=== PATIENT | male | born 1965 | race Caucasian/White ===

== ENCOUNTER → 2020-08-29 | Outpatient (CLI) | payer OTHER | LOC: LAB 11:49 | PROVIDERS: ATTEND Surgery | DX: Z01.812 Encounter for preprocedural laboratory examination (principal); K43.9 Ventral hernia without obstruction or gangrene; Z20.822 Contact with and (suspected) exposure to COVID-19 | CPT/HCPCS: U0003; U0005 ==

== ENCOUNTER 2020-09-01 06:18 | Day surgery (SDC) | payer OTHER ==
[~2020-09-01] VITALS: Ht 185.4 cm; Wt 147.0 kg
[~2020-09-01 06:18] MED LIST: ceFAZolin SODIUM 3 GM in IV DEXTROSE 5% 100ML 100 ML IV PRN
[2020-09-01] MEDS ORDERED: ROCURONIUM 50 MG/5 ML VIAL. ONE ×2 (06:25→08:02)
[2020-09-01] MEDS ORDERED: PROPOFOL 10 MG/ML (20ML) VIAL. IV ONE ×2 (06:25→08:06)
[2020-09-01] MEDS ORDERED: LIDOCAINE 2% PF 5 ML VIAL. ONE (06:25)
[2020-09-01] MEDS ORDERED: MULT-735 PO (06:42)
[2020-09-01] MEDS ORDERED: MELO15TA23 PO (06:43)
[2020-09-01] MEDS ORDERED: IBUP-1027 PO (06:43)
[2020-09-01] MEDS ORDERED: ACETAMINOPHEN 500 MG TABLET PO ONE (07:00)
[2020-09-01] MEDS ORDERED: PROCHLORPERAZINE 10 MG/2 ML VIAL. IVP PRN (07:00)
[2020-09-01] MEDS ORDERED: HYDROmorphone 2 MG/ML VIAL IVP PRN (07:00)
[2020-09-01] MEDS ORDERED: IV RINGERS,LACTATED 1000ML 1,000 ML IV SCH ×2 (07:00)
[2020-09-01] MEDS ORDERED: MORPHINE SULFATE 2 MG/ML VIAL. IVP PRN (07:00)
[2020-09-01] MEDS ORDERED: fentaNYL PF VIAL 100 MCG/2 ML VIAL IVP PRN (07:00)
[2020-09-01] MEDS ORDERED: BUPIVACAINE-EPI 0.25% 30 ML VIAL KIT. ONE (07:04)
[2020-09-01] MEDS ORDERED: fentaNYL PF VIAL 100 MCG/2 ML VIAL ONE ×5 (07:30→10:38)
[2020-09-01] MEDS ORDERED: SEVOFLURANE 61 TO 120 MINUTES. IH ONE (08:04)
[2020-09-01] MEDS ORDERED: DEXAMETHASONE SOD PHOS 4 MG/ML VIAL ONE (08:06)
[2020-09-01] MEDS ORDERED: ONDANSETRON PF 4 MG/2 ML VIAL. ONE (08:06)
[2020-09-01] MEDS ORDERED: KETOROLAC 30 MG/ML VIAL. ONE (08:32)
[2020-09-01] MEDS ORDERED: MIDAZOLAM HCL/PF 2 MG/2 ML VIAL. ONE (08:33)
[2020-09-01] MEDS ORDERED: GLYCOPYRROLATE 1 MG/5 ML VIAL. ONE (08:58)
[2020-09-01] MEDS ORDERED: NEOSTIGMINE METHYLSULFATE 5 MG/5 ML SYRINGE. ONE (08:58)
--- NOTE | 2020-09-01 09:09 | PDOC4 ---
Operative Note Operative Note Date: September 012020 at 906 Preoperative diagnosis: Incarcerated ventral hernia Postoperative diagnosis: Same Procedure: Robotic assisted laparoscopic ventral hernia repair with mesh Surgeon: Vincent Dictation: Patient is a 55-year-old gentleman with complaints of a painful bulge of his midline abdomen. Procedure of ventral hernia repair with mesh was explained to the patient detail risk benefits were also discussed including bleeding infection injury to intra-abdominal contents possible necessitating further open operations alternatives to this procedure also discussed with the patient who seemed to understand and gave both verbal and written consent to have the procedure performed. Patient was taken to the operating room placed in the supine position general anesthesia was initiated once patient was sleeping intubated his abdomen was prepped and draped usual sterile fashion using ChloraPrep. Area in the left upper quadrant was injected quarter percent Marcaine with epinephrine incision was made 11 blade scalpel and a 5 mm Visiport was placed under direct visualization into the abdomen and pneumoperitoneum was achieved once this complete 5 mm camera's placed within the abdomen which was inspected showed incarcerated omentum to the midline hernia. A 8 mm da Marcie port was placed in the left midabdomen and an 8 mm da Marcie port was placed in the left lower abdomen and the 5 mm Visiport was changed out for 8 mm da Marcie port all done under visualization. Da Marcie robot is brought and docked all port sites surgeon went to the robotic console using a grasper and Endo Mike scissors the hernia sac and contents were reduced. The hernia defect was then closed with a running 2 OV lock nonabsorbable suture. Ventral light ST mesh was then placed over the hernia defect this was sewn into place with a running 2 OV lock absorbable suture. Once this was complete all needles were removed from the abdomen the da Marcie robot was undocked from all port sites pneumoperitoneum was reduced all ports removed all port sites were closed with 4 subcuticular Monocryl Mastisol Steri-Strips and island dressings were applied. Patient was awakened and extubated in the operating room taken to recovery in stable condition all sponge instrument needle counts listed as correct estimated blood loss 5 mL ALMITA COLLAZO MD Sep 01, 2020 09:09
--- NOTE | 2020-09-01 09:11 | DISCH ---
DISCHARGE INSTRUCTIONS Condition on Discharge Condition on Discharge: Stable Activity After Discharge Activity Instructions for Disc: Avoid exertion Other activity instructions: No lifting more than 20 pounds for 2 weeks Diet after Discharge Diet after Discharge: Regular Wound Incision Care Other wound/incision instructi: Siri shower in 24-hour Contacting the after DC Call your doctor for: If your condition worsens Follow-Up Follow up with: Dr. Collazo in 2 weeks ALMITA COLLAZO MD Sep 01, 2020 09:11
[2020-09-01] MEDS ORDERED: PROCHLORPERAZINE 10 MG/2 ML VIAL. ONE (09:15)
[2020-09-01] MEDS: fentaNYL PF VIAL 100 MCG/2 ML VIAL IVP PRN ×3 (09:21→10:42)
[2020-09-01] MEDS ORDERED: OXYC1TAB15 PO (09:52)
[2020-09-01] MEDS ORDERED: oxyCODONE/APAP 5/325 1 TAB TABLET PO ONE ×2 (10:00→11:25)
[2020-09-01] MEDS ORDERED: oxyCODONE/APAP 5/325 1 TAB TABLET ONE ×2 (10:00→11:12)
[2020-09-01 10:40] VITALS: BP 123/68
== END 2020-09-01 11:35 | disposition home or self-care (01) ==
LOC: SURG 06:18 → EDUNIT# 08:00 → SURG 11:35
PROVIDERS: ATTEND Surgery
DX: K43.6 Other and unspecified ventral hernia with obstruction, without gangrene (principal); E66.9 Obesity, unspecified; M19.90 Unspecified osteoarthritis, unspecified site; Z90.49 Acquired absence of other specified parts of digestive tract; Z98.890 Other specified postprocedural states; Z79.899 Other long term (current) drug therapy; Z72.89 Other problems related to lifestyle
CPT/HCPCS: 49653; A4364; A4930; A6219; C1781; J0780; J1100; J1885; J2405; J2704; J2710; J3010; J3490; S2900; A4223; A4657; J2250

== ENCOUNTER 2020-09-02 23:14 | Inpatient (IN) | payer OTHER ==
[~2020-09-02] VITALS: Ht 185.4 cm; Wt 149.8 kg
[~2020-09-02 23:14] MED LIST changes: +IBUP-1027 PO; +MELO15TA23 PO; +MULT-735 PO; +OXYC1TAB15 PO; -ceFAZolin SODIUM 3 GM in IV DEXTROSE 5% 100ML 100 ML IV PRN
[2020-09-03] MEDS ORDERED: IV NORMAL SALINE 1000ML BAG 1,000 ML IV ONE ×2 (01:00→04:00)
[2020-09-03 01:05] LABS: BASO % 0 % (0-3); EOS % 0 % (0-3); HEMATOCRIT 33.9 % (39.0-53.0); HEMOGLOBIN 11.3 g/dL (13.0-17.5); LYMPH # 0.4 x10^3/uL (1.0-4.8); LYMPH % 3 % (24-48); MEAN CORPUSCULAR HEMOGLOBIN 27 pg (25-35); MEAN CORPUSCULAR HGB CONC 33 g/dL (31-37); MEAN CORPUSCULAR VOLUME 80 fL (79-100); MONO # 0.6 x10^3/uL (0.0-1.1); MONO % 5 % (0-9); NEUT # 11.5 x10^3/uL (1.8-7.7); NEUT % 91 % (31-73); PLATELET COUNT 364 x10^3/uL (140-400); RED BLOOD COUNT 4.24 x10^6/uL (4.30-5.70); RED CELL DISTRIBUTION WIDTH 16.3 % (11.5-14.5); WHITE BLOOD COUNT 12.6 x10^3/uL (4.0-11.0)
[2020-09-03 01:14] LABS: CALCIUM 8.8 mg/dL (8.5-10.1); CREATININE 1.1 mg/dL (0.7-1.3); GFR 69.8; POTASSIUM 3.8 mmol/L (3.5-5.1)
[2020-09-03 01:20] LABS: ALBUMIN 2.9 g/dL (3.4-5.0); ALBUMIN/GLOBULIN RATIO 0.7 (1.0-1.7); TOTAL BILIRUBIN 0.9 mg/dL (0.2-1.0); TOTAL PROTEIN 6.9 g/dL (6.4-8.2)
[2020-09-03] MEDS ORDERED: IBUPROFEN 200 MG TABLET. PO ONE (01:30)
[2020-09-03] MEDS ORDERED: CONTRAST GIVEN. MC PRN (02:15)
[2020-09-03] MEDS ORDERED: IOHEXOL 300 MG/ML 100ML VIAL. IV ONE (02:30)
--- NOTE | 2020-09-03 02:48 | RAD ---
Single view chest dated 09/03/2020. No comparison available. CLINICAL INDICATION: Fever and nausea. FINDINGS: Single upright portable exam performed. Heart and mediastinal contours are stable. There are some pro minent particular nodular markings at the perihilar regions. No consolidation or pleural effusion. No pneumothorax. IMPRESSION: 1. No evidence of focal pneumonia. 2. Mildly prominent perihilar reticular nodular markings, nonspecific. Consider acute or chronic bron chial inflammatory process or atypical infection. Electronically signed by: Segun Olivares MD (09/03/2020 2:46 AM) KRISHAN
--- NOTE | 2020-09-03 02:56 | RAD ---
CT abdomen pelvis with contrast dated 09/03/2020. No comparison available. CLINICAL INDICATION: Fever and nausea. TECHNIQUE: Contiguous axial imaging of the abdomen pelvis performed following the intravenous administration of 75 cc Omnipaque 300. One or more of the following individualized dose reduction techniques were utilized for this examinat ion: 1. Automated exposure control 2. Adjustment of the mA and/or kV according to patient size 3. Use of iterative reconstruction technique. FINDINGS: Images of lung bases show patchy and linear opacities in the lower lobes, right greater than left. Sm all right pleural effusion. Heart size within normal limits. No pericardial effusion. Liver and spleen are homogeneous. No apparent hepatic mass. Biliary tree normal in caliber. The gallb ladder is surgically absent. There is a small pocket of fluid in the gallbladder fossa measuring 3.5 cm maximum dimension. Spleen is normal in size. Pancreas, adrenal glands and kidneys are unremarkable. There is prominent l eft renal pelvis. No ureteral stone or hydronephrosis. Unopacified GI tract normal in caliber and contour. Evidence of prior ventral hernia repair. Small am ount of fluid and gas density along the margins of the mass, presumably postoperative. Small amount o f fat density adjacent to the umbilicus with small fluid and gas in the subcutaneous tissues. Appendi x normal in caliber. No ascites or lymphadenopathy. Images of pelvis show mildly distended urinary bladder. Prostate gland normal in size. No free fluid or pelvic adenopathy. There is a small amount of inflammatory stranding in the mesenteric fat just in ferior to the umbilical hernia repair site. Bone windows show no acute findings. Grade 1 spondylolisthesis and bilateral spondylolysis with multi level spondylosis. Moderate degenerative change of the bilateral hip joint, left greater than right. IMPRESSION: 1. Interval ventral hernia repair. Small amount of fluid and gas along the mesh assumably postoperati ve. 2. There is some heterogeneous fat density within the subcutaneous tissues around the umbilicus which could be related to fat necrosis and or inflammatory change related to recent hernia repair. 3. There is a small pocket of fluid in the gallbladder fossa is indeterminate but could represent res orbing hematoma or postoperative seroma. 4. Patchy bibasilar airspace disease, right greater than left, atelectasis versus pneumonia. There is a small right pleural effusion. Electronically signed by: Segun Olivares MD (09/03/2020 2:53 AM) MARIAELENA
--- NOTE | 2020-09-03 03:19 | PHYS DOC ---
Past Medical History Past Medical History: No Pertinent History Past Surgical History: Cholecystectomy Smoking Status: Never Smoker Alcohol Use: None General Adult EDM: Chief Complaint: FEVER HPI: HPI: 55-year-old male past medical history of hypertension and obesity presents to the ED after he called Dr. De Leon' refrigeration lead number with complaints of subjective fever and nausea that started around 4 PM today. Patient reports he had umbilical hernia surgery on Friday and was told to call him if he should develop any postoperative fever. Took " oxycodone and acetaminophen" around 1030 just prior to arrival. Reports postoperative pain has not worsened. Was vaccinated for Covid/completed beginning of July 2020. No history of Covid infection. Reports he takes meloxicam twice daily and 2 ibuprofen tablets every morning. States he is drinking lots of water and has no increased urinary frequency/urgency/dysuria or hematuria. No associated flank pain, chest pain, cough, leg swelling, hemoptysis or difficulties breathing. Review of Systems: Review of Systems: Constitutional: Denies lethargy or confusion Eyes: Denies change in visual acuity. [] HENT: Denies nasal congestion or sore throat. [] Respiratory: Denies cough or shortness of breath or hemoptysis Cardiovascular: Denies chest pain or edema. [] GI: Denies abdominal pain, vomiting, bloody stools or diarrhea. [] : Denies dysuria or hematuria Musculoskeletal: Denies back pain or joint pain. [] Integument: Denies rash or blistering lesions Neurologic: Denies headache, neck pain, focal weakness or sensory changes. [] Endocrine: Denies polyuria or polydipsia. [] Lymphatic: Denies swollen glands. [] Psychiatric: Denies depression or anxiety. [] Heart Score: C/O Chest Pain: No Risk Factors: Risk Factors: DM, Current or recent (<one month) smoker, HTN, HLP, family history of CAD, obesity. Risk Scores: Score 0 - 3: 2.5% MACE over next 6 weeks - Discharge Home Score 4 - 6: 20.3% MACE over next 6 weeks - Admit for Clinical Observation Score 7 - 10: 72.7% MACE over next 6 weeks - Early Invasive Strategies Current Medications: Current Medications Medications (Trade) Dose Ordered Sig/Diane Start Time Stop Time Status Last Admin Dose Admin Ibuprofen (Motrin) 600 mg 1X ONCE 09/03/20 01:30 09/03/20 01:31 DC 09/03/20 01:56 600 MG Info (CONTRAST GIVEN -- Rx MONITORING) 1 each PRN DAILY PRN 09/03/20 02:15 09/05/20 02:14 Iohexol (Omnipaque 300 Mg/ml) 75 ml 1X ONCE 09/03/20 02:30 09/03/20 02:31 DC 09/03/20 02:36 75 ML Sodium Chloride 1,000 ml @ 1,000 mls/hr 1X ONCE 09/03/20 01:00 09/03/20 01:59 DC 09/03/20 01:57 1,000 MLS/HR Allergies: Allergies: Allergies Coded Allergies Type Severity Reaction Last Updated Verified No Known Drug Allergies 09/01/20 No Physical Exam: PE: Constitutional: Well developed, well nourished, no acute distress, flu appearance. HENT: Normocephalic, atraumatic, moist mucous membranes Eyes: EOMI, conjunctiva normal, no discharge. Neck: Normal range of motion, supple, no nuchal rigidity or meningismus Cardiovascular: S1/2 present, tachycardic on arrival, 105 bpm, Lungs & Thorax: Speaking in full sentences, bilateral equal chest rise, no tachypnea or increased work of breathing Abdomen: soft, no tenderness, obese abdomen, normal umbilicus with no erythema or rash-no pain with palpation, no rigidity/guarding or peritonitis Skin: Warm, dry, no erythema, no rash. [] Extremities: No tenderness, no cyanosis, no lower extremity edema-no unilateral calf swelling Neurologic: Alert and oriented X 3, normal motor function, normal sensory function, no focal deficits noted. [] Psychologic: Affect normal, judgement normal, mood normal. [] Current Patient Data: Labs: Laboratory Tests Test 09/03/20 00:54 White Blood Count 12.6 x10^3/uL (4.0-11.0) H Red Blood Count 4.24 x10^6/uL (4.30-5.70) L Hemoglobin 11.3 g/dL (13.0-17.5) L Hematocrit 33.9 % (39.0-53.0) L Mean Corpuscular Volume 80 fL (79-100) Mean Corpuscular Hemoglobin 27 pg (25-35) Mean Corpuscular Hemoglobin Concent 33 g/dL (31-37) Red Cell Distribution Width 16.3 % (11.5-14.5) H Platelet Count 364 x10^3/uL (140-400) Neutrophils (%) (Auto) 91 % (31-73) H Lymphocytes (%) (Auto) 3 % (24-48) L Monocytes (%) (Auto) 5 % (0-9) Eosinophils (%) (Auto) 0 % (0-3) Basophils (%) (Auto) 0 % (0-3) Neutrophils # (Auto) 11.5 x10^3/uL (1.8-7.7) H Lymphocytes # (Auto) 0.4 x10^3/uL (1.0-4.8) L Monocytes # (Auto) 0.6 x10^3/uL (0.0-1.1) Eosinophils # (Auto) 0.0 x10^3/uL (0.0-0.7) Basophils # (Auto) 0.0 x10^3/uL (0.0-0.2) Platelet Estimate Pending Sodium Level 136 mmol/L (136-145) Potassium Level 3.8 mmol/L (3.5-5.1) Chloride Level 100 mmol/L (98-107) Carbon Dioxide Level 26 mmol/L (21-32) Anion Gap 10 (6-14) Blood Urea Nitrogen 20 mg/dL (8-26) Creatinine 1.1 mg/dL (0.7-1.3) Estimated GFR (Cockcroft-Gault) 69.8 BUN/Creatinine Ratio 18 (6-20) Glucose Level 112 mg/dL (70-99) H Calcium Level 8.8 mg/dL (8.5-10.1) Total Bilirubin 0.9 mg/dL (0.2-1.0) Aspartate Amino Transferase (AST) 21 U/L (15-37) Alanine Aminotransferase (ALT) 32 U/L (16-63) Alkaline Phosphatase 77 U/L (46-116) Creatine Kinase 121 U/L (39-308) Troponin I Quantitative < 0.017 ng/mL (0.000-0.055) Total Protein 6.9 g/dL (6.4-8.2) Albumin 2.9 g/dL (3.4-5.0) L Albumin/Globulin Ratio 0.7 (1.0-1.7) L Lipase 78 U/L (73-393) Laboratory Tests 09/03/20 00:54 Laboratory Tests 09/03/20 00:54 Vital Signs: Vital Signs Date Time Temp Pulse Resp B/P (MAP) Pulse Ox O2 Delivery O2 Flow Rate FiO2 09/02/20 23:35 100.2 120 18 134/80 (98) 90 Room Air 100.2 EKG: EKG: Sinus rhythm at 97 bpm, no axis deviation, normal intervals, S1Q3T3 present, no active chest pain, no ST elevations or ST depressions Radiology/Procedures: Radiology/Procedures: IMAGING REPORT Signed PATIENT: FRANCINE HERNÁNDEZ ACCOUNT: [id number] : 1965 LOCATION: ER AGE: 55 SEX: M EXAM STATUS: PRE ER ORD. PHYSICIAN: KIAH PLATT DO REASON: fever/nausea ER#3 PROCEDURE: PORTABLE CHEST 1V Single view chest dated 09/03/2020. No comparison available. CLINICAL INDICATION: Fever and nausea. FINDINGS: Single upright portable exam performed. Heart and mediastinal contours are stable. There are some prominent particular nodular markings at the perihilar regions. No consolidation or pleural effusion. No pneumothorax. IMPRESSION: 1. No evidence of focal pneumonia. 2. Mildly prominent perihilar reticular nodular markings, nonspecific. Consider acute or chronic bronchial inflammatory process or atypical infection. Electronically signed by: Segun Olivares MD (09/03/2020 2:46 AM) [employer] [employer] DICTATED and SIGNED BY: SEGUN OLIVARES MD DATE: 09/03/20 [id number] IMAGING REPORT Signed PATIENT: FRANCINE HERNÁNDEZ ACCOUNT: [id number] : 1965 LOCATION: ER AGE: 55 SEX: M EXAM STATUS: REG ER ORD. PHYSICIAN: KIAH PLATT DO REASON: fever/nausea OMNI 300, 75 ML IV PROCEDURE: CT ABD PELV W/ IV CONTRST ONLY CT abdomen pelvis with contrast dated 09/03/2020. No comparison available. CLINICAL INDICATION: Fever and nausea. TECHNIQUE: Contiguous axial imaging of the abdomen pelvis performed following the intrave nous administration of 75 cc Omnipaque 300. One or more of the following individualized dose reduction techniques were utilized for this examination: 1. Automated exposure control 2. Adjustment of the mA and/or kV according to patient size 3. Use of iterative reconstruction technique. FINDINGS: Images of lung bases show patchy and linear opacities in the lower lobes, right greater than left. Small right pleural effusion. Heart size within normal limits. No pericardial effusion. Liver and spleen are homogeneous. No apparent hepatic mass. Biliary tree normal in caliber. The gallbladder is surgically absent. There is a small pocket of fluid in the gallbladder fossa measuring 3.5 cm maximum dimension. Spleen is normal in size. Pancreas, adrenal glands and kidneys are unremarkable. There is prominent left renal pelvis. No ureteral stone or hydronephrosis. Unopacified GI tract normal in caliber and contour. Evidence of prior ventral hernia repair. Small amount of fluid and gas density along the margins of the mass, presumably postoperative. Small amount of fat density adjacent to the umbilicus with small fluid and gas in the subcutaneous tissues. Appendix normal in caliber. No ascites or lymphadenopathy. Images of pelvis show mildly distended urinary bladder. Prostate gland normal in size. No free fluid or pelvic adenopathy. There is a small amount of inflammatory stranding in the mesenteric fat just inferior to the umbilical hernia repair site. Bone windows show no acute findings. Grade 1 spondylolisthesis and bilateral spondylolysis with multilevel spondylosis. Moderate degenerative change of the bilateral hip joint, left greater than right. IMPRESSION: 1. Interval ventral hernia repair. Small amount of fluid and gas along the mesh assumably postoperative. 2. There is some heterogeneous fat density within the subcutaneous tissues around the umbilicus which could be related to fat necrosis and or inflammatory change related to recent hernia repair. 3. There is a small pocket of fluid in the gallbladder fossa is indeterminate but could represent resorbing hematoma or postoperative seroma. 4. Patchy bibasilar airspace disease, right greater than left, atelectasis versus pneumonia. There is a small right pleural effusion. Electronically signed by: Segun Olivares MD (09/03/2020 2:53 AM) [employer] [employer] DICTATED and SIGNED BY: SEGUN OLIVAERS MD DATE: 09/03/20 [id number] Course & Med Decision Making: Course & Med Decision Making Pertinent Labs and Imaging studies reviewed. (See chart for details) Concern for postoperative pneumonia versus atelectasis in the setting of sepsis. Patient meets sirs criteria. Lactic acid 0.8. I d/w neurosurgery Dr. Paz who recommended admission. Will admit to medicine for further medical management. Patient stable at time of admission and agrees with this plan. I have spoken with the patient and/or caregivers. I have explained the patient's condition, diagnosis and treatment plan based on the information available to me at this time. I have answered the patient's and/or caregivers questions and answered any concerns. The patient and/or caregivers have as good an understanding of the patient's diagnosis, condition and treatment plan as can be expected at this point. The patient has been stabilized within the capability of the emergency department. The patient will be transported for further care and management or will be moved to an observation or inpatient service. I have communicated with the staff or medical practitioner taking over this patient's care. Iris Disclaimer: Iris Disclaimer: This electronic medical record was generated, in whole or in part, using a voice recognition dictation system. Departure Departure Impression: Primary Impression: Postoperative fever Additional Impressions: Postoperative pneumonia Sepsis Disposition: ADMITTED INPATIENT Admitting Physician: ALEXANDER (Dr. Pihllips) Condition: STABLE Referrals: GONZALO SAMANIEGO (PCP) KIAH PLATT DO Sep 03, 2020 03:19
--- NOTE | 2020-09-03 03:24 | EKG ---
[facility] [address] [place] [address] Test Date: 2020-09-03 Test Time: 02:06:05 Pat Name: FRANCINE HERNÁNDEZ Department: Room: Gender: M Auditing Manager: : 1965 Requested By: KIAH PLATT Order Number: [id number] Reading MD: Measurements Intervals Randolph Rate: 97 P: 24 FL: 174 QRS: 36 QRSD: 88 T: 16 QT: 330 QTc: 423 Interpretive Statements SINUS RHYTHM NORMAL ECG RI6.02 No previous ECG available for comparison
[2020-09-03] MEDS ORDERED: cefTRIAXone IV Push 1 GM VIAL. IVP ONE (04:00)
[2020-09-03] MEDS ORDERED: AZITHRMYCN 500MG IVPB FOR OMNI 250 ML IV ONE (04:00)
[2020-09-03 04:57] LABS: % ATYL 1 % (0-0); % BANDS 1 % (0-9); % LYMPHS 7 % (24-48); % MONOS 5 % (0-10); % SEGS 86 % (35-66); PLT ESTIMATE ADEQUATE (ADEQUATE)
[2020-09-03] MEDS: IV NORMAL SALINE 1000ML BAG 1,000 ML IV SCH ×2 (06:20→14:00)
[2020-09-03 06:27] VITALS: BP 99/53
--- NOTE | 2020-09-03 08:12 | PDOC1 ---
History and Physical Date of Service: DOS: DATE: 09/03/20 TIME: 08:03 Chief Complaint: Chief Complain: Postoperative fever History of Present Illness: HPI: 55-year-old male past medical history of hypertension and obesity presents to the ED after he called Dr. De Leon' long term care pharmacist number with complaints of subjective fever and nausea that started around 4 PM today. Patient reports he had umbilical hernia surgery on Friday and was told to call him if he should develop any postoperative fever. Took " oxycodone and acetaminophen" around 1030 just prior to arrival. Reports postoperative pain has not worsened. Was vaccinated for Covid/completed beginning of July 2020. No history of Covid infection. Reports he takes meloxicam twice daily and 2 ibuprofen tablets every morning. States he is drinking lots of water and has no increased urinary frequency/urgency/dysuria or hematuria. No associated flank pain, chest pain, cough, leg swelling, hemoptysis or difficulties breathing. Past Medical/Surgical History: PMH/PSH: Past Medical History: No Pertinent History Past Surgical History: Cholecystectomy, VIHR Allergies: Allergies: Coded Allergies: No Known Drug Allergies (Unverified , 09/01/20) Family History: Family History: Reviewed with no relevant findings Social History: Social History: Smoking Status: Never Smoker Alcohol Use: None Current Medications: Current Medications Current Medications Sodium Chloride 1,000 ml @ 1,000 mls/hr 1X ONCE IV Last administered on 09/03/20at 01:57; Start 09/03/20 at 01:00; Stop 09/03/20 at 01:59; Status DC Ibuprofen (Motrin) 600 mg 1X ONCE PO Last administered on 09/03/20at 01:56; Start 09/03/20 at 01:30; Stop 09/03/20 at 01:31; Status DC Iohexol (Omnipaque 300 Mg/ml) 75 ml 1X ONCE IV Last administered on 09/03/20at 02:36; Start 09/03/20 at 02:30; Stop 09/03/20 at 02:31; Status DC Info (CONTRAST GIVEN -- Rx MONITORING) 1 each PRN DAILY PRN MC SEE COMMENTS; Start 09/03/20 at 02:15; Stop 09/05/20 at 02:14 Ceftriaxone Sodium (Rocephin) 1 gm 1X ONCE IVP Last administered on 09/03/20at 04:00; Start 09/03/20 at 04:00; Stop 09/03/20 at 04:01; Status DC Azithromycin 250 ml @ 250 mls/hr 1X ONCE IV Last administered on 09/03/20at 05:52; Start 09/03/20 at 04:00; Stop 09/03/20 at 04:59; Status DC Sodium Chloride 1,000 ml @ 1,000 mls/hr 1X ONCE IV Last administered on 09/03/20at 04:00; Start 09/03/20 at 04:00; Stop 09/03/20 at 04:59; Status DC Sodium Chloride 1,000 ml @ 100 mls/hr Q10H IV Last administered on 09/03/20at 06:20; Start 09/03/20 at 04:15; Stop 09/04/20 at 04:14 Active Scripts Active Reported Percocet 5-325 Mg Tablet (Oxycodone/Acetaminophen) 1 Each Tablet 1-2 Tab PO PRN Q6HRS PRN Meloxicam 15 Mg Tablet 1 Tab PO DAILY 30 Days Ibuprofen 400 Mg Tablet 400 Mg PO DAILY PRN One-Daily Multi-Vitamin (Multivitamin) 1 Each Tablet 1 Tab PO DAILY 30 Days ROS: Review of Systems Review of System REVIEW OF SYSTEMS: GENERAL: Denies weakness SKIN: No bruising, hair changes or rashes. EYES: No blurred, double or loss of vision. NOSE AND THROAT: No history of nosebleeds, hoarseness or sore throat. HEART: No history of palpitations, chest pain or shortness of breath on exertion. LUNGS: Denies cough, hemoptysis, wheezing or shortness of breath. GASTROINTESTINAL: Denies changes in appetite, nausea, vomiting, diarrhea or constipation. GENITOURINARY: No history of frequency, urgency, hesitancy or nocturia. NEUROLOGIC: Denies history of numbness, tingling, or tremor. PSYCHIATRIC: No history of panic, anxiety or depression. ENDOCRINE: No history of heat or cold intolerance, polyuria or polydipsia. EXTREMITIES: Denies joint pain, pain on walking or stiffness. Physical Exam: Vital Signs: Vital Signs Date Time Temp Pulse Resp B/P (MAP) Pulse Ox O2 Delivery O2 Flow Rate FiO2 09/03/20 06:27 98.8 81 18 99/53 (68) 95 Nasal Cannula 2.0 98.8 Physcial Exam: GEN: No apparent distress. Alert and oriented HEENT: Normal cephalic, atraumatic, external auditory canals are patent EYES: Extraocular muscles are intact, pupil are equally round and reactive to light and accommodation MUSCULOSKELETAL: Well developed , well nourished, good range of motion ENDOCRINE: No thyromegaly was palpated LYMPHATICS: No cervical chain or axillary nodes were noted HEMATOPOIETIC: No bruising NECK: Supple, no JVD, no thyromegaly was noted LUNGS: Clear to auscultation in all lung [place] with minimal crackles HEART: RRR, S!, S2 present. Peripheral pulses intact, no obvious murmurs noted ABDOMEN: Soft, tender to palpation in the periumbilical area. Mild erythema surrounding the tender area region. Positive bowel sounds, no organomegaly, normal bowel sounds EXTREMITIES: Without clubbing, cyanosis, or edema. Pedal pulses intact. Negative Homans sign NEUROLOGIC: Normal speech and tone. A&O x 3, moves all extremities, no obvious focal deficits PSYCHIATRIC: Normal affect, normal mood. Stable SKIN: No ulcerations or rashes, good skin turgor, no jaundice VASCULAR: Good capillary refill, neurovascular bundle appears to be intact Labs: Labs: Laboratory Tests Test 09/03/20 00:54 White Blood Count 12.6 x10^3/uL (4.0-11.0) Red Blood Count 4.24 x10^6/uL (4.30-5.70) Hemoglobin 11.3 g/dL (13.0-17.5) Hematocrit 33.9 % (39.0-53.0) Mean Corpuscular Volume 80 fL (79-100) Mean Corpuscular Hemoglobin 27 pg (25-35) Mean Corpuscular Hemoglobin Concent 33 g/dL (31-37) Red Cell Distribution Width 16.3 % (11.5-14.5) Platelet Count 364 x10^3/uL (140-400) Neutrophils (%) (Auto) 91 % (31-73) Lymphocytes (%) (Auto) 3 % (24-48) Monocytes (%) (Auto) 5 % (0-9) Eosinophils (%) (Auto) 0 % (0-3) Basophils (%) (Auto) 0 % (0-3) Neutrophils # (Auto) 11.5 x10^3/uL (1.8-7.7) Lymphocytes # (Auto) 0.4 x10^3/uL (1.0-4.8) Monocytes # (Auto) 0.6 x10^3/uL (0.0-1.1) Eosinophils # (Auto) 0.0 x10^3/uL (0.0-0.7) Basophils # (Auto) 0.0 x10^3/uL (0.0-0.2) Segmented Neutrophils % 86 % (35-66) Band Neutrophils % 1 % (0-9) Lymphocytes % 7 % (24-48) Atypical Lymphocytes % (Manual) 1 % (0-0) Monocytes % 5 % (0-10) Platelet Estimate Adequate (ADEQUATE) Sodium Level 136 mmol/L (136-145) Potassium Level 3.8 mmol/L (3.5-5.1) Chloride Level 100 mmol/L (98-107) Carbon Dioxide Level 26 mmol/L (21-32) Anion Gap 10 (6-14) Blood Urea Nitrogen 20 mg/dL (8-26) Creatinine 1.1 mg/dL (0.7-1.3) Estimated GFR (Cockcroft-Gault) 69.8 BUN/Creatinine Ratio 18 (6-20) Glucose Level 112 mg/dL (70-99) Lactic Acid Level 0.8 mmol/L (0.4-2.0) Calcium Level 8.8 mg/dL (8.5-10.1) Total Bilirubin 0.9 mg/dL (0.2-1.0) Aspartate Amino Transf (AST/SGOT) 21 U/L (15-37) Alanine Aminotransferase (ALT/SGPT) 32 U/L (16-63) Alkaline Phosphatase 77 U/L (46-116) Creatine Kinase 121 U/L (39-308) Troponin I Quantitative < 0.017 ng/mL (0.000-0.055) Total Protein 6.9 g/dL (6.4-8.2) Albumin 2.9 g/dL (3.4-5.0) Albumin/Globulin Ratio 0.7 (1.0-1.7) Lipase 78 U/L (73-393) Laboratory Tests Test 09/03/20 00:54 White Blood Count 12.6 x10^3/uL (4.0-11.0) Red Blood Count 4.24 x10^6/uL (4.30-5.70) Hemoglobin 11.3 g/dL (13.0-17.5) Hematocrit 33.9 % (39.0-53.0) Mean Corpuscular Volume 80 fL (79-100) Mean Corpuscular Hemoglobin 27 pg (25-35) Mean Corpuscular Hemoglobin Concent 33 g/dL (31-37) Red Cell Distribution Width 16.3 % (11.5-14.5) Platelet Count 364 x10^3/uL (140-400) Neutrophils (%) (Auto) 91 % (31-73) Lymphocytes (%) (Auto) 3 % (24-48) Monocytes (%) (Auto) 5 % (0-9) Eosinophils (%) (Auto) 0 % (0-3) Basophils (%) (Auto) 0 % (0-3) Neutrophils # (Auto) 11.5 x10^3/uL (1.8-7.7) Lymphocytes # (Auto) 0.4 x10^3/uL (1.0-4.8) Monocytes # (Auto) 0.6 x10^3/uL (0.0-1.1) Eosinophils # (Auto) 0.0 x10^3/uL (0.0-0.7) Basophils # (Auto) 0.0 x10^3/uL (0.0-0.2) Segmented Neutrophils % 86 % (35-66) Band Neutrophils % 1 % (0-9) Lymphocytes % 7 % (24-48) Atypical Lymphocytes % (Manual) 1 % (0-0) Monocytes % 5 % (0-10) Platelet Estimate Adequate (ADEQUATE) Sodium Level 136 mmol/L (136-145) Potassium Level 3.8 mmol/L (3.5-5.1) Chloride Level 100 mmol/L (98-107) Carbon Dioxide Level 26 mmol/L (21-32) Anion Gap 10 (6-14) Blood Urea Nitrogen 20 mg/dL (8-26) Creatinine 1.1 mg/dL (0.7-1.3) Estimated GFR (Cockcroft-Gault) 69.8 BUN/Creatinine Ratio 18 (6-20) Glucose Level 112 mg/dL (70-99) Lactic Acid Level 0.8 mmol/L (0.4-2.0) Calcium Level 8.8 mg/dL (8.5-10.1) Total Bilirubin 0.9 mg/dL (0.2-1.0) Aspartate Amino Transf (AST/SGOT) 21 U/L (15-37) Alanine Aminotransferase (ALT/SGPT) 32 U/L (16-63) Alkaline Phosphatase 77 U/L (46-116) Creatine Kinase 121 U/L (39-308) Troponin I Quantitative < 0.017 ng/mL (0.000-0.055) Total Protein 6.9 g/dL (6.4-8.2) Albumin 2.9 g/dL (3.4-5.0) Albumin/Globulin Ratio 0.7 (1.0-1.7) Lipase 78 U/L (73-393) Images: Images PROCEDURE: CT ABD PELV W/ IV CONTRST ONLY IMPRESSION: 1. Interval ventral hernia repair. Small amount of fluid and gas along the mesh assumably postoperative. 2. There is some heterogeneous fat density within the subcutaneous tissues around the umbilicus which could be related to fat necrosis and or inflammatory change related to recent hernia repair. 3. There is a small pocket of fluid in the gallbladder fossa is indeterminate but could represent resorbing hematoma or postoperative seroma. 4. Patchy bibasilar airspace disease, right greater than left, atelectasis versus pneumonia. There is a small right pleural effusion. CXR IMPRESSION: 1. No evidence of focal pneumonia. 2. Mildly prominent perihilar reticular nodular markings, nonspecific. Consider acute or chronic bronchial inflammatory process or atypical infection. Assessment/Plan Assessment/Plan Sepsis Concern for surgical site infection near mesh placement, more likely postoperative seroma Atypical pneumonia, possible gram-negative organisms Admit to medicine for further management General surgery consult Continue empiric IV antibiotics Pending blood cultures Lovenox for DVT prophylaxis Protonix GI prophylaxis ADA diet Full code Discussed with RN and SW Disposition patient management as above Surrogate decision maker is Fanta Sanabria Justifications for Admission Other Justification MICHI SAUCEDO MD Sep 03, 2020 08:12
[2020-09-03] MEDS ORDERED: ONDANSETRON PF 4 MG/2 ML VIAL. IVP PRN (08:15)
[2020-09-03] MEDS ORDERED: PIP/TAZO PER PHARMACY MC PRN (08:15)
[2020-09-03] MEDS ORDERED: DOCUSATE SODIUM 100 MG CAPSULE. PO PRN (08:15)
[2020-09-03] MEDS ORDERED: DEXTROSE 50% 25 GM / 50ML DISP.SYRIN. IV PRN (08:15)
[2020-09-03] MEDS ORDERED: ACETAMINOPHEN 325 MG TABLET. PO PRN (08:15)
[2020-09-03] MEDS ORDERED: SENNOSIDES 8.6 MG TABLET PO PRN (08:15)
[2020-09-03] MEDS ORDERED: VANCOMYCIN 2 GM in IV NORMAL SALINE 500ML BAG 500 ML IV ONE (08:30)
[2020-09-03 10:35] VITALS: BP 136/74
[2020-09-03] MEDS ORDERED: oxyCODONE/APAP 5/325 1 TAB TABLET PO PRN (12:15)
[2020-09-03] MEDS: PIPERACILLIN/TAZOBACTAM 3.375 GM in IV NORMAL SALINE 50ML 50 ML IV SCH ×2 (12:20→18:29)
--- NOTE | 2020-09-03 12:24 | PDOC2 ---
CONSULT Date of Consult Date of Consult DATE: 09/03/20 TIME: 12:20 Reason for Consult Reason for Consult: fever Referring Physician Referring Physician: Dr. Gregory Identification/Chief Complaint Chief Complaint fever, chills Source Source: Chart review, Patient History of Present Illness Reason for Visit: 55 yo M developed f/c last night, called and was encouraged to proceed to ER. Pt reports continued f/c but breathing improved on oxygen. Appropriate incisional pain at umbilical hernia repair site. Past Medical History Cardiovascular: No pertinent hx Past Surgical History Past Surgical History: Cholecystectomy, Hernia Repair Family History Family History: No Significant Social History No ALCOHOL: none Current Problem List Problem List Problems Medical Problems: (1) Postoperative fever Status: Acute (2) Postoperative pneumonia Status: Acute (3) Sepsis Status: Acute Current Medications Current Medications Current Medications Sodium Chloride 1,000 ml @ 1,000 mls/hr 1X ONCE IV Last administered on 09/03/20at 01:57; Start 09/03/20 at 01:00; Stop 09/03/20 at 01:59; Status DC Ibuprofen (Motrin) 600 mg 1X ONCE PO Last administered on 09/03/20at 01:56; Start 09/03/20 at 01:30; Stop 09/03/20 at 01:31; Status DC Iohexol (Omnipaque 300 Mg/ml) 75 ml 1X ONCE IV Last administered on 09/03/20at 02:36; Start 09/03/20 at 02:30; Stop 09/03/20 at 02:31; Status DC Info (CONTRAST GIVEN -- Rx MONITORING) 1 each PRN DAILY PRN MC SEE COMMENTS; Start 09/03/20 at 02:15; Stop 09/05/20 at 02:14 Ceftriaxone Sodium (Rocephin) 1 gm 1X ONCE IVP Last administered on 09/03/20at 04:00; Start 09/03/20 at 04:00; Stop 09/03/20 at 04:01; Status DC Azithromycin 250 ml @ 250 mls/hr 1X ONCE IV Last administered on 09/03/20at 05:52; Start 09/03/20 at 04:00; Stop 09/03/20 at 04:59; Status DC Sodium Chloride 1,000 ml @ 1,000 mls/hr 1X ONCE IV Last administered on 09/03/20at 04:00; Start 09/03/20 at 04:00; Stop 09/03/20 at 04:59; Status DC Sodium Chloride 1,000 ml @ 100 mls/hr Q10H IV Last administered on 09/03/20at 06:20; Start 09/03/20 at 04:15; Stop 09/04/20 at 04:14 Piperacillin Sod/ Tazobactam Sod (Zosyn Per Pharmacy) 1 each PRN DAILY PRN MC SEE COMMENTS; Start 09/03/20 at 08:15 Sennosides (Senna) 17.2 mg PRN BID PRN PO CONSTIPATION; Start 09/03/20 at 08:15 Docusate Sodium (Colace) 100 mg PRN DAILY PRN PO HARD STOOLS; Start 09/03/20 at 08:15 Ondansetron HCl (Zofran) 4 mg PRN Q6HRS PRN IVP NAUSEA/VOMITING; Start 09/03/20 at 08:15 Dextrose (Dextrose 50%-Water Syringe) 12.5 gm PRN Q15MIN PRN IV SEE COMMENTS; Start 09/03/20 at 08:15 Acetaminophen (Tylenol) 650 mg PRN Q4HRS PRN PO TEMP OVER 100.4F OR MILD PAIN; Start 09/03/20 at 08:15 Vancomycin HCl (Vanco Per Pharmacy) 1 each PRN DAILY PRN MC SEE COMMENTS; Start 09/03/20 at 08:15 Piperacillin Sod/ Tazobactam Sod 3.375 gm/Sodium Chloride 50 ml @ 100 mls/hr Q6HRS IV ; Start 09/03/20 at 12:00 Vancomycin HCl 2 gm/Sodium Chloride 500 ml @ 250 mls/hr 1X ONCE IV Last administered on 09/03/20at 09:19; Start 09/03/20 at 08:30; Stop 09/03/20 at 10:29; Status DC Oxycodone/ Acetaminophen (Percocet 5/325) 1 tab PRN Q6HRS PRN PO MODERATE PAIN; Start 09/03/20 at 12:15 Oxycodone/ Acetaminophen (Percocet 5/325) 2 tab PRN Q6HRS PRN PO SEVERE PAIN; Start 09/03/20 at 12:15 Active Scripts Active Reported Percocet 5-325 Mg Tablet (Oxycodone/Acetaminophen) 1 Each Tablet 1-2 Tab PO PRN Q6HRS PRN Meloxicam 15 Mg Tablet 1 Tab PO DAILY 30 Days Ibuprofen 400 Mg Tablet 400 Mg PO DAILY PRN One-Daily Multi-Vitamin (Multivitamin) 1 Each Tablet 1 Tab PO DAILY 30 Days Allergies Allergies: Coded Allergies: No Known Drug Allergies (Unverified , 09/01/20) ROS General: YES: Chills Gastrointestinal: Yes Other (incision hernia repair 2 days ago appropriate pain) Physical Exam General: Alert, Oriented X3, Cooperative, mild distress HEENT: Atraumatic Lungs: Normal air movement Abdomen: Soft, Other (dressings intact, umbilicus with normal skin) Extremities: No clubbing, No cyanosis Skin: No rashes, No breakdown Neuro: Normal speech, Sensation intact Psych/Mental Status: Mental status NL, Mood NL Vitals VITALS Vital Signs Date Time Temp Pulse Resp B/P (MAP) Pulse Ox O2 Delivery O2 Flow Rate FiO2 09/03/20 10:35 100.1 95 18 136/74 (94) 98 Nasal Cannula 2.0 100.1 Labs Labs Laboratory Tests Test 09/03/20 00:54 White Blood Count 12.6 x10^3/uL (4.0-11.0) Red Blood Count 4.24 x10^6/uL (4.30-5.70) Hemoglobin 11.3 g/dL (13.0-17.5) Hematocrit 33.9 % (39.0-53.0) Mean Corpuscular Volume 80 fL (79-100) Mean Corpuscular Hemoglobin 27 pg (25-35) Mean Corpuscular Hemoglobin Concent 33 g/dL (31-37) Red Cell Distribution Width 16.3 % (11.5-14.5) Platelet Count 364 x10^3/uL (140-400) Neutrophils (%) (Auto) 91 % (31-73) Lymphocytes (%) (Auto) 3 % (24-48) Monocytes (%) (Auto) 5 % (0-9) Eosinophils (%) (Auto) 0 % (0-3) Basophils (%) (Auto) 0 % (0-3) Neutrophils # (Auto) 11.5 x10^3/uL (1.8-7.7) Lymphocytes # (Auto) 0.4 x10^3/uL (1.0-4.8) Monocytes # (Auto) 0.6 x10^3/uL (0.0-1.1) Eosinophils # (Auto) 0.0 x10^3/uL (0.0-0.7) Basophils # (Auto) 0.0 x10^3/uL (0.0-0.2) Segmented Neutrophils % 86 % (35-66) Band Neutrophils % 1 % (0-9) Lymphocytes % 7 % (24-48) Atypical Lymphocytes % (Manual) 1 % (0-0) Monocytes % 5 % (0-10) Platelet Estimate Adequate (ADEQUATE) Sodium Level 136 mmol/L (136-145) Potassium Level 3.8 mmol/L (3.5-5.1) Chloride Level 100 mmol/L (98-107) Carbon Dioxide Level 26 mmol/L (21-32) Anion Gap 10 (6-14) Blood Urea Nitrogen 20 mg/dL (8-26) Creatinine 1.1 mg/dL (0.7-1.3) Estimated GFR (Cockcroft-Gault) 69.8 BUN/Creatinine Ratio 18 (6-20) Glucose Level 112 mg/dL (70-99) Lactic Acid Level 0.8 mmol/L (0.4-2.0) Calcium Level 8.8 mg/dL (8.5-10.1) Total Bilirubin 0.9 mg/dL (0.2-1.0) Aspartate Amino Transf (AST/SGOT) 21 U/L (15-37) Alanine Aminotransferase (ALT/SGPT) 32 U/L (16-63) Alkaline Phosphatase 77 U/L (46-116) Creatine Kinase 121 U/L (39-308) Troponin I Quantitative < 0.017 ng/mL (0.000-0.055) Total Protein 6.9 g/dL (6.4-8.2) Albumin 2.9 g/dL (3.4-5.0) Albumin/Globulin Ratio 0.7 (1.0-1.7) Lipase 78 U/L (73-393) Laboratory Tests Test 09/03/20 00:54 White Blood Count 12.6 x10^3/uL (4.0-11.0) Red Blood Count 4.24 x10^6/uL (4.30-5.70) Hemoglobin 11.3 g/dL (13.0-17.5) Hematocrit 33.9 % (39.0-53.0) Mean Corpuscular Volume 80 fL (79-100) Mean Corpuscular Hemoglobin 27 pg (25-35) Mean Corpuscular Hemoglobin Concent 33 g/dL (31-37) Red Cell Distribution Width 16.3 % (11.5-14.5) Platelet Count 364 x10^3/uL (140-400) Neutrophils (%) (Auto) 91 % (31-73) Lymphocytes (%) (Auto) 3 % (24-48) Monocytes (%) (Auto) 5 % (0-9) Eosinophils (%) (Auto) 0 % (0-3) Basophils (%) (Auto) 0 % (0-3) Neutrophils # (Auto) 11.5 x10^3/uL (1.8-7.7) Lymphocytes # (Auto) 0.4 x10^3/uL (1.0-4.8) Monocytes # (Auto) 0.6 x10^3/uL (0.0-1.1) Eosinophils # (Auto) 0.0 x10^3/uL (0.0-0.7) Basophils # (Auto) 0.0 x10^3/uL (0.0-0.2) Segmented Neutrophils % 86 % (35-66) Band Neutrophils % 1 % (0-9) Lymphocytes % 7 % (24-48) Atypical Lymphocytes % (Manual) 1 % (0-0) Monocytes % 5 % (0-10) Platelet Estimate Adequate (ADEQUATE) Sodium Level 136 mmol/L (136-145) Potassium Level 3.8 mmol/L (3.5-5.1) Chloride Level 100 mmol/L (98-107) Carbon Dioxide Level 26 mmol/L (21-32) Anion Gap 10 (6-14) Blood Urea Nitrogen 20 mg/dL (8-26) Creatinine 1.1 mg/dL (0.7-1.3) Estimated GFR (Cockcroft-Gault) 69.8 BUN/Creatinine Ratio 18 (6-20) Glucose Level 112 mg/dL (70-99) Lactic Acid Level 0.8 mmol/L (0.4-2.0) Calcium Level 8.8 mg/dL (8.5-10.1) Total Bilirubin 0.9 mg/dL (0.2-1.0) Aspartate Amino Transf (AST/SGOT) 21 U/L (15-37) Alanine Aminotransferase (ALT/SGPT) 32 U/L (16-63) Alkaline Phosphatase 77 U/L (46-116) Creatine Kinase 121 U/L (39-308) Troponin I Quantitative < 0.017 ng/mL (0.000-0.055) Total Protein 6.9 g/dL (6.4-8.2) Albumin 2.9 g/dL (3.4-5.0) Albumin/Globulin Ratio 0.7 (1.0-1.7) Lipase 78 U/L (73-393) Images Images imaging c/w bronchitis vs pneumonia-defer to primary no obvious complications of hernia repair Assessment/Plan Assessment/Plan f/c appears to be secondary to respiratory issues no obvious surgical site complications. Thanks for consult! ERICK JACQUES MD Sep 03, 2020 12:24
[2020-09-03] MEDS: ENOXAPARIN 40 MG/0.4 ML SYRINGE. SQ SCH (13:59)
[2020-09-03 14:35] VITALS: BP 117/60
[2020-09-03] MEDS: VANCOMYCIN PER PHARMACY MC PRN (15:14)
--- NOTE | 2020-09-03 15:26 | NUR ---
Pharmacy Vancomycin Dosing Note S:Consulted to monitor and dose vancomycin started 09/03/20. O:FRANCINE HERNÁNDEZ is a 55 year old M with Empiric . Height: 6 feet, 1 inches Weight: 149.8 kg [place] Body Weight: 79.90 Adjusted Body Weight: 107.86 Dosing Weight: Actual Other Antibiotics: Zosyn LABS: Last BUN: 20 Last Creatinine: 1.1 Creatinine Clearance: 87 mL/min Last WBC: 12.6 Last Procalcitonin: Tmax (past 24 hours): 100.2 Microbiology: I/O: Drug Levels: Last level: on at Last dose given 09/03/20 at 0919 Vancomycin Dosing: Loading Dose: 2000 mg x1 Dosing Weight: Actual Target Trough: 15-20 A: Based on weight and est. CrCl: P: 1. Vancomycin 2000 mg IV q12h 2. Follow up Trough level on 09/04/20 at 2030 3. Pharmacy will continue to monitor, follow and adjust therapy as needed. Ravi López, [facility]MER[facility] [place], 09/03/20 [id number]
[2020-09-03 19:00] VITALS: BP 95/65
[2020-09-03] MEDS: VANCOMYCIN 2 GM in IV NORMAL SALINE 500ML BAG 500 ML IV SCH (21:27)
[2020-09-03 23:00] VITALS: BP 124/71
[2020-09-03] MEDS: oxyCODONE/APAP 5/325 1 TAB TABLET PO PRN (23:03)
[2020-09-04] MEDS: PIPERACILLIN/TAZOBACTAM 3.375 GM in IV NORMAL SALINE 50ML 50 ML IV SCH ×4 (00:09→17:04)
[2020-09-04 03:00] VITALS: BP 118/67
[2020-09-04 06:10] LABS: BASO % 0 % (0-3); EOS % 0 % (0-3); HEMOGLOBIN 11.2 g/dL (13.0-17.5); LYMPH # 0.3 x10^3/uL (1.0-4.8); LYMPH % 6 % (24-48); MEAN CORPUSCULAR HEMOGLOBIN 27 pg (25-35); MEAN CORPUSCULAR HGB CONC 34 g/dL (31-37); MEAN CORPUSCULAR VOLUME 80 fL (79-100); MONO # 0.3 x10^3/uL (0.0-1.1); MONO % 5 % (0-9); NEUT # 5.4 x10^3/uL (1.8-7.7); NEUT % 89 % (31-73); PLATELET COUNT 254 x10^3/uL (140-400); RED BLOOD COUNT 4.11 x10^6/uL (4.30-5.70); RED CELL DISTRIBUTION WIDTH 16.4 % (11.5-14.5); WHITE BLOOD COUNT 6.1 x10^3/uL (4.0-11.0)
[2020-09-04 06:24] LABS: CALCIUM 8.3 mg/dL (8.5-10.1); CREATININE 0.9 mg/dL (0.7-1.3); GFR 87.9; MAGNESIUM 1.7 mg/dL (1.8-2.4); POTASSIUM 3.3 mmol/L (3.5-5.1)
[2020-09-04 07:00] VITALS: BP 118/71
--- NOTE | 2020-09-04 08:13 | PDOC ---
SURGICAL PROGRESS NOTE DATE: 09/04/20 TIME: 08:11 Subjective Patient states he is feeling well head several bowel movements yesterday. Denies any shortness of breath while wearing the oxygen Vital Signs Vital Signs Date Time Temp Pulse Resp B/P (MAP) Pulse Ox O2 Delivery O2 Flow Rate FiO2 09/04/20 07:00 100.1 97 18 118/71 (87) 97 Nasal Cannula 2.0 100.1 PATIENT HAS A CONNELL: No General: Alert, Oriented X3, Cooperative, mild distress Abdomen: Normal bowel sounds, Soft, Other (Mild incisional tenderness wounds clean dry and intact) Labs Laboratory Tests Test 09/03/20 00:54 09/04/20 04:55 White Blood Count 12.6 x10^3/uL (4.0-11.0) 6.1 x10^3/uL (4.0-11.0) Red Blood Count 4.24 x10^6/uL (4.30-5.70) 4.11 x10^6/uL (4.30-5.70) Hemoglobin 11.3 g/dL (13.0-17.5) 11.2 g/dL (13.0-17.5) Hematocrit 33.9 % (39.0-53.0) 33.0 % (39.0-53.0) Mean Corpuscular Volume 80 fL (79-100) 80 fL (79-100) Mean Corpuscular Hemoglobin 27 pg (25-35) 27 pg (25-35) Mean Corpuscular Hemoglobin Concent 33 g/dL (31-37) 34 g/dL (31-37) Red Cell Distribution Width 16.3 % (11.5-14.5) 16.4 % (11.5-14.5) Platelet Count 364 x10^3/uL (140-400) 254 x10^3/uL (140-400) Neutrophils (%) (Auto) 91 % (31-73) 89 % (31-73) Lymphocytes (%) (Auto) 3 % (24-48) 6 % (24-48) Monocytes (%) (Auto) 5 % (0-9) 5 % (0-9) Eosinophils (%) (Auto) 0 % (0-3) 0 % (0-3) Basophils (%) (Auto) 0 % (0-3) 0 % (0-3) Neutrophils # (Auto) 11.5 x10^3/uL (1.8-7.7) 5.4 x10^3/uL (1.8-7.7) Lymphocytes # (Auto) 0.4 x10^3/uL (1.0-4.8) 0.3 x10^3/uL (1.0-4.8) Monocytes # (Auto) 0.6 x10^3/uL (0.0-1.1) 0.3 x10^3/uL (0.0-1.1) Eosinophils # (Auto) 0.0 x10^3/uL (0.0-0.7) 0.0 x10^3/uL (0.0-0.7) Basophils # (Auto) 0.0 x10^3/uL (0.0-0.2) 0.0 x10^3/uL (0.0-0.2) Segmented Neutrophils % 86 % (35-66) Band Neutrophils % 1 % (0-9) Lymphocytes % 7 % (24-48) Atypical Lymphocytes % (Manual) 1 % (0-0) Monocytes % 5 % (0-10) Platelet Estimate Adequate (ADEQUATE) Sodium Level 136 mmol/L (136-145) 138 mmol/L (136-145) Potassium Level 3.8 mmol/L (3.5-5.1) 3.3 mmol/L (3.5-5.1) Chloride Level 100 mmol/L (98-107) 103 mmol/L (98-107) Carbon Dioxide Level 26 mmol/L (21-32) 26 mmol/L (21-32) Anion Gap 10 (6-14) 9 (6-14) Blood Urea Nitrogen 20 mg/dL (8-26) 12 mg/dL (8-26) Creatinine 1.1 mg/dL (0.7-1.3) 0.9 mg/dL (0.7-1.3) Estimated GFR (Cockcroft-Gault) 69.8 87.9 BUN/Creatinine Ratio 18 (6-20) Glucose Level 112 mg/dL (70-99) 99 mg/dL (70-99) Lactic Acid Level 0.8 mmol/L (0.4-2.0) Calcium Level 8.8 mg/dL (8.5-10.1) 8.3 mg/dL (8.5-10.1) Total Bilirubin 0.9 mg/dL (0.2-1.0) Aspartate Amino Transf (AST/SGOT) 21 U/L (15-37) Alanine Aminotransferase (ALT/SGPT) 32 U/L (16-63) Alkaline Phosphatase 77 U/L (46-116) Creatine Kinase 121 U/L (39-308) Troponin I Quantitative < 0.017 ng/mL (0.000-0.055) Total Protein 6.9 g/dL (6.4-8.2) Albumin 2.9 g/dL (3.4-5.0) Albumin/Globulin Ratio 0.7 (1.0-1.7) Lipase 78 U/L (73-393) Phosphorus Level 3.0 mg/dL (2.6-4.7) Magnesium Level 1.7 mg/dL (1.8-2.4) Laboratory Tests Test 09/04/20 04:55 White Blood Count 6.1 x10^3/uL (4.0-11.0) Red Blood Count 4.11 x10^6/uL (4.30-5.70) Hemoglobin 11.2 g/dL (13.0-17.5) Hematocrit 33.0 % (39.0-53.0) Mean Corpuscular Volume 80 fL (79-100) Mean Corpuscular Hemoglobin 27 pg (25-35) Mean Corpuscular Hemoglobin Concent 34 g/dL (31-37) Red Cell Distribution Width 16.4 % (11.5-14.5) Platelet Count 254 x10^3/uL (140-400) Neutrophils (%) (Auto) 89 % (31-73) Lymphocytes (%) (Auto) 6 % (24-48) Monocytes (%) (Auto) 5 % (0-9) Eosinophils (%) (Auto) 0 % (0-3) Basophils (%) (Auto) 0 % (0-3) Neutrophils # (Auto) 5.4 x10^3/uL (1.8-7.7) Lymphocytes # (Auto) 0.3 x10^3/uL (1.0-4.8) Monocytes # (Auto) 0.3 x10^3/uL (0.0-1.1) Eosinophils # (Auto) 0.0 x10^3/uL (0.0-0.7) Basophils # (Auto) 0.0 x10^3/uL (0.0-0.2) Sodium Level 138 mmol/L (136-145) Potassium Level 3.3 mmol/L (3.5-5.1) Chloride Level 103 mmol/L (98-107) Carbon Dioxide Level 26 mmol/L (21-32) Anion Gap 9 (6-14) Blood Urea Nitrogen 12 mg/dL (8-26) Creatinine 0.9 mg/dL (0.7-1.3) Estimated GFR (Cockcroft-Gault) 87.9 Glucose Level 99 mg/dL (70-99) Calcium Level 8.3 mg/dL (8.5-10.1) Phosphorus Level 3.0 mg/dL (2.6-4.7) Magnesium Level 1.7 mg/dL (1.8-2.4) Problem List Problems Medical Problems: (1) Postoperative fever Status: Acute (2) Postoperative pneumonia Status: Acute (3) Sepsis Status: Acute Assessment/Plan Status post ventral hernia repair surgically stable Defer further treatment for pulmonary issues to internal medicine Justicifation of Admission Dx: Justifications for Admission: Justification of Admission Dx: N/A ALMITA COLLAZO MD Sep 04, 2020 08:13
[2020-09-04] MEDS: VANCOMYCIN 2 GM in IV NORMAL SALINE 500ML BAG 500 ML IV SCH (09:00)
[2020-09-04] MEDS: ENOXAPARIN 40 MG/0.4 ML SYRINGE. SQ SCH ×2 (09:04→21:39)
[2020-09-04] MEDS: IV NORMAL SALINE 1000ML BAG 1,000 ML IV SCH (09:12)
[2020-09-04 10:31] VITALS: BP 116/74
[2020-09-04] MEDS: VANCOMYCIN PER PHARMACY MC PRN ×2 (13:04→21:27)
--- NOTE | 2020-09-04 13:24 | NUR ---
SW following. Discussed with RN, pt from home, 2L (does not use oxygen at home), NPO/ clears. Pt currently on IV abx. Pt will need a 6 minute walk prior to discharge if still requiring oxygen. SW will continue to follow.
--- NOTE | 2020-09-04 13:32 | PDOC ---
[facility] [facility] PROGRESS NOTE Date of Service DOS: DATE: 09/04/20 TIME: 13:28 Chief Complaint Chief Complaint Sepsis Concern for surgical site infection near mesh placement, more likely postoperative seroma Atypical pneumonia, possible gram-negative organisms Plan: Admit to medicine for further management General surgery consult Continue empiric IV antibiotics Pending blood cultures Lovenox for DVT prophylaxis Protonix GI prophylaxis ADA diet Full code Discussed with RN and SW Disposition patient management as above Surrogate decision maker is Fanta Sanabria History of Present Illness History of Present Illness 55-year-old male past medical history of hypertension and obesity presents to the ED after 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 Patient reports he had umbilical hernia surgery on Friday and was told to call him if he should develop any postoperative fever. Took " oxycodone and acetaminophen" around 1030 just prior to arrival. Reports postoperative pain has not worsened. Was vaccinated for Covid/completed beginning of July 2020. No history of Covid infection. Reports he takes meloxicam twice daily and 2 ibuprofen tablets every morning. States he is drinking lots of water and has no increased urinary frequency/urgency/dysuria or hematuria. No associated flank pain, chest pain, cough, leg swelling, hemoptysis or difficulties breathing. 09/04/2020 Patient continues to have low-grade fevers, 100.1 overnight. Still breathing on 2 L nasal cannula. Blood cultures negative to date; will continue to follow. Encouraged incentive spirometer use. Continue with empiric vancomycin and Zosyn. Will obtain repeat CXR and pro calcitonin tomorrow. Vitals/I&O Vitals/I&O: Vital Signs Date Time Temp Pulse Resp B/P (MAP) Pulse Ox O2 Delivery O2 Flow Rate FiO2 09/04/20 10:31 98.6 93 18 116/74 (88) 93 Nasal Cannula 2.0 98.6 Physical Exam General: Alert, Oriented X3, Cooperative, No acute distress Heart: Regular rate Lungs: Clear Abdomen: Normal bowel sounds, Soft, Other (Mild incisional tenderness wounds clean dry and intact) Extremities: No clubbing, No cyanosis Skin: No rashes, No breakdown Labs Labs: Laboratory Tests Test 09/04/20 04:55 White Blood Count 6.1 x10^3/uL (4.0-11.0) Red Blood Count 4.11 x10^6/uL (4.30-5.70) Hemoglobin 11.2 g/dL (13.0-17.5) Hematocrit 33.0 % (39.0-53.0) Mean Corpuscular Volume 80 fL (79-100) Mean Corpuscular Hemoglobin 27 pg (25-35) Mean Corpuscular Hemoglobin Concent 34 g/dL (31-37) Red Cell Distribution Width 16.4 % (11.5-14.5) Platelet Count 254 x10^3/uL (140-400) Neutrophils (%) (Auto) 89 % (31-73) Lymphocytes (%) (Auto) 6 % (24-48) Monocytes (%) (Auto) 5 % (0-9) Eosinophils (%) (Auto) 0 % (0-3) Basophils (%) (Auto) 0 % (0-3) Neutrophils # (Auto) 5.4 x10^3/uL (1.8-7.7) Lymphocytes # (Auto) 0.3 x10^3/uL (1.0-4.8) Monocytes # (Auto) 0.3 x10^3/uL (0.0-1.1) Eosinophils # (Auto) 0.0 x10^3/uL (0.0-0.7) Basophils # (Auto) 0.0 x10^3/uL (0.0-0.2) Sodium Level 138 mmol/L (136-145) Potassium Level 3.3 mmol/L (3.5-5.1) Chloride Level 103 mmol/L (98-107) Carbon Dioxide Level 26 mmol/L (21-32) Anion Gap 9 (6-14) Blood Urea Nitrogen 12 mg/dL (8-26) Creatinine 0.9 mg/dL (0.7-1.3) Estimated GFR (Cockcroft-Gault) 87.9 Glucose Level 99 mg/dL (70-99) Calcium Level 8.3 mg/dL (8.5-10.1) Phosphorus Level 3.0 mg/dL (2.6-4.7) Magnesium Level 1.7 mg/dL (1.8-2.4) Assessment and Plan Assessmemt and Plan Problems Medical Problems: (1) Postoperative fever Status: Acute (2) Postoperative pneumonia Status: Acute (3) Sepsis Status: Acute Comment Review of Relevant I have reviewed the following items amos (where applicable) has been applied. Medications: Current Medications Medications (Trade) Dose Ordered Sig/Diane Route PRN Reason Start Time Stop Time Status Last Admin Dose Admin Vancomycin HCl 2 gm/Sodium Chloride 500 ml @ 250 mls/hr Q12H IV 09/03/20 21:00 09/04/20 09:00 Justifications for Admission Other Justification ESTEBAN WHITMORE MD Sep 04, 2020 13:32
[2020-09-04 14:26] VITALS: BP 141/79
[2020-09-04] MEDS: oxyCODONE/APAP 5/325 1 TAB TABLET PO PRN (17:07)
[2020-09-04 19:00] VITALS: BP 111/61
[2020-09-04 21:15] LABS: VANC TR 9.7 mcg/mL (10.0-20.0)
--- NOTE | 2020-09-04 21:27 | NUR ---
Pharmacy Vancomycin Dosing Note S:Consulted to monitor and dose vancomycin started 09/03/20. O:FRANCINE HERNÁNDEZ is a 55 year old M with Empiric POST-OP FEVER . Height: 6 feet, 1 inches Weight: 149.8 kg [place] Body Weight: 79.90 Adjusted Body Weight: 107.86 Dosing Weight: Actual Other Antibiotics: Zosyn LABS: Last BUN: 12 Last Creatinine: 0.9 Creatinine Clearance: >100 mL/min Last WBC: 6.1 Last Procalcitonin: Tmax (past 24 hours): 100.1 Microbiology: 09/03 Blood- No growth I/O: - Drug Levels: Last level: on at Last dose given 09/04/20 at 0900 Vancomycin Dosing: Loading Dose: 2000 mg x1 Dosing Weight: Actual Target Trough: 15-20 A: Based on: LOW TROUGH LEVEL P: 1. Change Vancomycin 1750 mg IV q8h 2. Follow up Trough level as needed. 3. Pharmacy will continue to monitor, follow and adjust therapy as needed. WILIAN HAMLIN, [facility] [place], 09/04/20 [id number]
[2020-09-04] MEDS: LACTOBACILLUS RHAMNOSUS GG 1 CAPSULE. PO SCH (21:39)
[2020-09-04] MEDS: VANCOMYCIN 1.75 GM in IV NORMAL SALINE 500ML BAG 500 ML IV SCH (21:40)
[2020-09-04 23:00] VITALS: BP 108/69
[2020-09-05] MEDS: PIPERACILLIN/TAZOBACTAM 3.375 GM in IV NORMAL SALINE 50ML 50 ML IV SCH ×4 (00:33→18:00)
[2020-09-05 03:00] VITALS: BP 112/72
[2020-09-05] MEDS: VANCOMYCIN 1.75 GM in IV NORMAL SALINE 500ML BAG 500 ML IV SCH (05:44)
[2020-09-05 06:37] LABS: BASO % 0 % (0-3); EOS # 0.1 x10^3/uL (0.0-0.7); EOS % 3 % (0-3); HEMATOCRIT 31.3 % (39.0-53.0); HEMOGLOBIN 10.5 g/dL (13.0-17.5); LYMPH # 0.5 x10^3/uL (1.0-4.8); LYMPH % 11 % (24-48); MEAN CORPUSCULAR HEMOGLOBIN 26 pg (25-35); MEAN CORPUSCULAR HGB CONC 33 g/dL (31-37); MEAN CORPUSCULAR VOLUME 79 fL (79-100); MONO # 0.5 x10^3/uL (0.0-1.1); MONO % 11 % (0-9); NEUT # 3.1 x10^3/uL (1.8-7.7); NEUT % 75 % (31-73); PLATELET COUNT 252 x10^3/uL (140-400); RED BLOOD COUNT 3.97 x10^6/uL (4.30-5.70); RED CELL DISTRIBUTION WIDTH 16.1 % (11.5-14.5); WHITE BLOOD COUNT 4.2 x10^3/uL (4.0-11.0)
[2020-09-05 07:00] VITALS: BP 122/66
[2020-09-05 07:00] LABS: CALCIUM 8.6 mg/dL (8.5-10.1); CREATININE 0.9 mg/dL (0.7-1.3); GFR 87.9; POTASSIUM 3.5 mmol/L (3.5-5.1)
[2020-09-05] MEDS: LACTOBACILLUS RHAMNOSUS GG 1 CAPSULE. PO SCH (08:23)
[2020-09-05] MEDS: ENOXAPARIN 40 MG/0.4 ML SYRINGE. SQ SCH (08:24)
[2020-09-05 11:00] VITALS: BP 114/63
--- NOTE | 2020-09-05 11:19 | PDOC ---
[employer] PROGRESS NOTE Date of Service DOS: DATE: 09/05/20 TIME: 11:11 Chief Complaint Chief Complaint Sepsis Concern for surgical site infection near mesh placement, more likely postoperative seroma Atypical pneumonia, possible gram-negative organisms Plan: Admit to medicine for further management General surgery consult Continue empiric IV antibiotics Pending blood cultures Lovenox for DVT prophylaxis Protonix GI prophylaxis ADA diet Full code Discussed with RN and SW Disposition patient management as above Surrogate decision maker is Fanta Sanabria History of Present Illness History of Present Illness 55-year-old male past medical history of hypertension and obesity presents to the ED after 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 Patient reports he had umbilical hernia surgery on Friday and was told to call him if he should develop any postoperative fever. Took " oxycodone and acetaminophen" around 1030 just prior to arrival. Reports postoperative pain has not worsened. Was vaccinated for Covid/completed beginning of July 2020. No history of Covid infection. Reports he takes meloxicam twice daily and 2 ibuprofen tablets every morning. States he is drinking lots of water and has no increased urinary frequency/urgency/dysuria or hematuria. No associated flank pain, chest pain, cough, leg swelling, hemoptysis or difficulties breathing. 09/05/2020 No further fevers. Patient denies subjective fevers, chills, nausea, chest pain, or vomiting. He is concerned that he still breathing on 1-2 L nasal cannula. I have some concern over procalcitonin 2.62; this may be secondary to recent surgery or possible pneumonia secondary to atelectasis. Will obtain CXR; barring significant abnormalities he may still discharge with Augmentin twice daily for 7 days. Will also order 6-minute walk, and he can follow-up with his PCP and continue to monitor his oxygen as outpatient. 09/04/2020 Patient continues to have low-grade fevers, 100.1 overnight. Still breathing on 2 L nasal cannula. Blood cultures negative to date; will continue to follow. Encouraged incentive spirometer use. Some concern over continue with empiric vancomycin and Zosyn. Will obtain repeat CXR and pro calcitonin tomorrow. Vitals/I&O Vitals/I&O: Vital Signs Date Time Temp Pulse Resp B/P (MAP) Pulse Ox O2 Delivery O2 Flow Rate FiO2 09/05/20 07:00 98.3 76 18 122/66 (84) 96 Nasal Cannula 1.0 98.3 Physical Exam General: Alert, Oriented X3, Cooperative, No acute distress Heart: Regular rate Lungs: Clear Abdomen: Normal bowel sounds, Soft, Other (Mild incisional tenderness wounds clean dry and intact) Extremities: No clubbing, No cyanosis Skin: No rashes, No breakdown Labs Labs: Laboratory Tests Test 09/04/20 19:48 09/05/20 06:00 Vancomycin Level Trough 9.7 mcg/mL (10.0-20.0) Vancomycin Last Dose Date 09/04/20 Vancomycin Last Dose Time 0900 White Blood Count 4.2 x10^3/uL (4.0-11.0) Red Blood Count 3.97 x10^6/uL (4.30-5.70) Hemoglobin 10.5 g/dL (13.0-17.5) Hematocrit 31.3 % (39.0-53.0) Mean Corpuscular Volume 79 fL (79-100) Mean Corpuscular Hemoglobin 26 pg (25-35) Mean Corpuscular Hemoglobin Concent 33 g/dL (31-37) Red Cell Distribution Width 16.1 % (11.5-14.5) Platelet Count 252 x10^3/uL (140-400) Neutrophils (%) (Auto) 75 % (31-73) Lymphocytes (%) (Auto) 11 % (24-48) Monocytes (%) (Auto) 11 % (0-9) Eosinophils (%) (Auto) 3 % (0-3) Basophils (%) (Auto) 0 % (0-3) Neutrophils # (Auto) 3.1 x10^3/uL (1.8-7.7) Lymphocytes # (Auto) 0.5 x10^3/uL (1.0-4.8) Monocytes # (Auto) 0.5 x10^3/uL (0.0-1.1) Eosinophils # (Auto) 0.1 x10^3/uL (0.0-0.7) Basophils # (Auto) 0.0 x10^3/uL (0.0-0.2) Sodium Level 141 mmol/L (136-145) Potassium Level 3.5 mmol/L (3.5-5.1) Chloride Level 103 mmol/L (98-107) Carbon Dioxide Level 26 mmol/L (21-32) Anion Gap 12 (6-14) Blood Urea Nitrogen 9 mg/dL (8-26) Creatinine 0.9 mg/dL (0.7-1.3) Estimated GFR (Cockcroft-Gault) 87.9 Glucose Level 104 mg/dL (70-99) Calcium Level 8.6 mg/dL (8.5-10.1) Procalcitonin 2.62 ng/mL (0.00-0.10) Assessment and Plan Assessmemt and Plan Problems Medical Problems: (1) Postoperative fever Status: Acute (2) Postoperative pneumonia Status: Acute (3) Sepsis Status: Acute Comment Review of Relevant I have reviewed the following items amos (where applicable) has been applied. Medications: Current Medications Medications (Trade) Dose Ordered Sig/Diane Route PRN Reason Start Time Stop Time Status Last Admin Dose Admin Lactobacillus Rhamnosus (Culturelle) 1 cap BID PO 09/04/20 21:00 09/05/20 08:23 Vancomycin HCl 1.75 gm/Sodium Chloride 500 ml @ 250 mls/hr Q8H IV 09/04/20 22:00 09/05/20 05:44 Justifications for Admission Other Justification ESTEBAN WHITMORE MD Sep 05, 2020 11:19
--- NOTE | 2020-09-05 11:20 | NUR ---
SW following. Discussed with RN, pt from home, 1L, clear liquid diet. 6 minute walk ordered. Anticipate discharge today or tomorrow (09/06/20). SW will continue to follow.
[2020-09-05 15:00] VITALS: BP 122/68
--- NOTE | 2020-09-05 15:55 | RAD ---
XR CHEST 1V History: Reason: Shortness of breath / Spl. Instructions: / History: Comparison: September 03, 2020 Findings: Decreased vascular congestion. No pleural effusion. No pneumothorax. Normal heart size. Impression: 1. Decreased vascular congestion. Electronically signed by: Ronal Sotelo DO (09/05/2020 3:53 PM) [id number]
[2020-09-05] MEDS ORDERED: AMOX1TAB61 PO (15:57)
--- NOTE | 2020-09-05 16:04 | PDOC3 ---
Discharge Summary Visit Information Date of Admission: Sep 03, 2020 Date of Discharge: Sep 05, 2020 Final Diagnosis Problems Medical Problems: (1) Postoperative fever Status: Acute (2) Postoperative pneumonia Status: Acute (3) Sepsis Status: Acute Brief Hospital Course Allergies Allergies Coded Allergies Type Severity Reaction Last Updated Verified No Known Drug Allergies 09/01/20 No Vital Signs Vital Signs Date Time Temp Pulse Resp B/P (MAP) Pulse Ox O2 Delivery O2 Flow Rate FiO2 09/05/20 15:00 98.2 71 18 122/68 (86) 94 Nasal Cannula 1.0 98.2 Lab Results Laboratory Tests Test 09/04/20 04:55 09/04/20 19:48 09/05/20 06:00 White Blood Count 6.1 x10^3/uL (4.0-11.0) 4.2 x10^3/uL (4.0-11.0) Red Blood Count 4.11 x10^6/uL (4.30-5.70) 3.97 x10^6/uL (4.30-5.70) Hemoglobin 11.2 g/dL (13.0-17.5) 10.5 g/dL (13.0-17.5) Hematocrit 33.0 % (39.0-53.0) 31.3 % (39.0-53.0) Mean Corpuscular Volume 80 fL (79-100) 79 fL (79-100) Mean Corpuscular Hemoglobin 27 pg (25-35) 26 pg (25-35) Mean Corpuscular Hemoglobin Concent 34 g/dL (31-37) 33 g/dL (31-37) Red Cell Distribution Width 16.4 % (11.5-14.5) 16.1 % (11.5-14.5) Platelet Count 254 x10^3/uL (140-400) 252 x10^3/uL (140-400) Neutrophils (%) (Auto) 89 % (31-73) 75 % (31-73) Lymphocytes (%) (Auto) 6 % (24-48) 11 % (24-48) Monocytes (%) (Auto) 5 % (0-9) 11 % (0-9) Eosinophils (%) (Auto) 0 % (0-3) 3 % (0-3) Basophils (%) (Auto) 0 % (0-3) 0 % (0-3) Neutrophils # (Auto) 5.4 x10^3/uL (1.8-7.7) 3.1 x10^3/uL (1.8-7.7) Lymphocytes # (Auto) 0.3 x10^3/uL (1.0-4.8) 0.5 x10^3/uL (1.0-4.8) Monocytes # (Auto) 0.3 x10^3/uL (0.0-1.1) 0.5 x10^3/uL (0.0-1.1) Eosinophils # (Auto) 0.0 x10^3/uL (0.0-0.7) 0.1 x10^3/uL (0.0-0.7) Basophils # (Auto) 0.0 x10^3/uL (0.0-0.2) 0.0 x10^3/uL (0.0-0.2) Sodium Level 138 mmol/L (136-145) 141 mmol/L (136-145) Potassium Level 3.3 mmol/L (3.5-5.1) 3.5 mmol/L (3.5-5.1) Chloride Level 103 mmol/L (98-107) 103 mmol/L (98-107) Carbon Dioxide Level 26 mmol/L (21-32) 26 mmol/L (21-32) Anion Gap 9 (6-14) 12 (6-14) Blood Urea Nitrogen 12 mg/dL (8-26) 9 mg/dL (8-26) Creatinine 0.9 mg/dL (0.7-1.3) 0.9 mg/dL (0.7-1.3) Estimated GFR (Cockcroft-Gault) 87.9 87.9 Glucose Level 99 mg/dL (70-99) 104 mg/dL (70-99) Calcium Level 8.3 mg/dL (8.5-10.1) 8.6 mg/dL (8.5-10.1) Phosphorus Level 3.0 mg/dL (2.6-4.7) Magnesium Level 1.7 mg/dL (1.8-2.4) Vancomycin Level Trough 9.7 mcg/mL (10.0-20.0) Vancomycin Last Dose Date 09/04/20 Vancomycin Last Dose Time 0900 Procalcitonin 2.62 ng/mL (0.00-0.10) Laboratory Tests Test 09/04/20 19:48 09/05/20 06:00 Vancomycin Level Trough 9.7 mcg/mL (10.0-20.0) Vancomycin Last Dose Date 09/04/20 Vancomycin Last Dose Time 0900 White Blood Count 4.2 x10^3/uL (4.0-11.0) Red Blood Count 3.97 x10^6/uL (4.30-5.70) Hemoglobin 10.5 g/dL (13.0-17.5) Hematocrit 31.3 % (39.0-53.0) Mean Corpuscular Volume 79 fL (79-100) Mean Corpuscular Hemoglobin 26 pg (25-35) Mean Corpuscular Hemoglobin Concent 33 g/dL (31-37) Red Cell Distribution Width 16.1 % (11.5-14.5) Platelet Count 252 x10^3/uL (140-400) Neutrophils (%) (Auto) 75 % (31-73) Lymphocytes (%) (Auto) 11 % (24-48) Monocytes (%) (Auto) 11 % (0-9) Eosinophils (%) (Auto) 3 % (0-3) Basophils (%) (Auto) 0 % (0-3) Neutrophils # (Auto) 3.1 x10^3/uL (1.8-7.7) Lymphocytes # (Auto) 0.5 x10^3/uL (1.0-4.8) Monocytes # (Auto) 0.5 x10^3/uL (0.0-1.1) Eosinophils # (Auto) 0.1 x10^3/uL (0.0-0.7) Basophils # (Auto) 0.0 x10^3/uL (0.0-0.2) Sodium Level 141 mmol/L (136-145) Potassium Level 3.5 mmol/L (3.5-5.1) Chloride Level 103 mmol/L (98-107) Carbon Dioxide Level 26 mmol/L (21-32) Anion Gap 12 (6-14) Blood Urea Nitrogen 9 mg/dL (8-26) Creatinine 0.9 mg/dL (0.7-1.3) Estimated GFR (Cockcroft-Gault) 87.9 Glucose Level 104 mg/dL (70-99) Calcium Level 8.6 mg/dL (8.5-10.1) Procalcitonin 2.62 ng/mL (0.00-0.10) Brief Hospital Course Mr. Sanabria is a 55 old male who presented with post-op pneumonia. He had umbilical hernia repair on 09/01/2020 and developed post-op fever two days later. He was admitted with General surgery consultation. He was treated with broad spectrum antibiotics and supportive care. He had a 6 min walk and did not require oxygen. He was discharged home with self-care and a prescription of Augmentin bid x 5 days. Discharge Information Condition at Discharge: Improved Follow Up: Weeks Disposition/Orders: D/C to Home Scheduled Amoxicillin/Potassium Clav (Augmentin 875-125 Tablet) 1 Each Tablet, 1 TAB PO BID for PNA for 5 Days, #10 Ref 0 Prescribed by: ESTEBAN WHITMORE MD on 09/05/20 1557 Multivitamin (One-Daily Multi-Vitamin) 1 Each Tablet, 1 TAB PO DAILY for vitamin for 30 Days, #30 Ref 0 (Reported) Entered as Reported by: KAILA ERWIN on 09/01/20 0642 Scheduled PRN Oxycodone/Apap 5-325 (Percocet 5-325 Mg Tablet ) 1 Each Tablet, 1-2 TAB PO PRN Q6HRS PRN for PAIN, #20 Ref 0 (Reported) Entered as Reported by: JOGN MCKEE, RN on 09/01/20 0952 Discontinued Medications Ibuprofen (Ibuprofen) 400 Mg Tablet, 400 MG PO DAILY PRN for INFLAMMATION, (Reported) Entered as Reported by: KAILA ERWIN on 09/01/20 0643 Meloxicam (Meloxicam) 15 Mg Tablet, 1 TAB PO DAILY for arthritis for 30 Days, #30 Ref 0 (Reported) Entered as Reported by: KAILA ERWIN on 09/01/20 0643 Justicifation of Admission Dx: Justifications for Admission: Justification of Admission Dx: N/A ESTEBAN WHITMORE MD Sep 05, 2020 16:04
--- NOTE | 2020-09-05 18:10 | NUR ---
Patient discharged home with self care. Patient verbalized discharge instructions. No questions at this time.
[2020-10-11] MEDS ORDERED: MELO15TA23 PO (23:11)
[2020-10-15] MEDS ORDERED: LINE600T12 PO (10:20)
[2020-10-15] MEDS ORDERED: CIPR500S2 PO (10:20)
== END 2020-09-05 17:55 | disposition home or self-care (01) | DRG 205 ==
LOC: ER 23:14 → 4 NORTH 09-03 04:56
PROVIDERS: ADMIT Internal Medicine; ATTEND Internal Medicine
DX: J95.89 Other postprocedural complications and disorders of respiratory system, not elsewhere classified (principal); A41.9 Sepsis, unspecified organism; I10 Essential (primary) hypertension; Z90.49 Acquired absence of other specified parts of digestive tract
CPT/HCPCS: 36415; 71045; 74177; 80048; 80053; 80202; 82550; 83605; 83690; 83735; 84100; 84145; 84484; 85007; 85025; 87040; 93005; 94618; 96361; 96374; 96375; 99285; J0456; J0696; J1650; J2543; J3370; J7030; J7040; Q9967; G0378